=== PATIENT | male | born 1990 | race Caucasian/White ===

== ENCOUNTER 2017-05-08 16:28 | Emergency (ER) | payer MEDICAID ==
[2017-05-08 17:01] VITALS: BP 157/102; PULSE 93; RESP 16; TEMP 98.1; O2SAT 99
[2017-05-08] MEDS ORDERED: APAP/HYDROCODONE 325/5 TAB PO ONE (17:37)
[2017-05-08] MEDS ORDERED: APAP/HYDROCODONE 325/5 TAB ONE (17:52)
== END 2017-05-08 18:00 | disposition home or self-care (01) | DRG 159 ==
LOC: ED 16:28
DX: K08.89 Other specified disorders of teeth and supporting structures (principal)
CPT/HCPCS: 99282; 99283

== ENCOUNTER 2017-05-12 16:55 | Emergency (ER) | payer MEDICAID ==
[2017-05-12 17:05] VITALS: TEMP 97.6
[2017-05-12] MEDS ORDERED: SODIUM CHLORIDE 0.9% 1000 ML SOL IV SCH (17:30)
[2017-05-12 17:37] LABS: BASOPHILS % (AUTO) 1 % (0-3); EOSINOPHILS % (AUTO) 3 % (0-9); HEMATOCRIT 46 % (39-53); MEAN CORPUSCULAR HGB CONC 33.4 gm/dl (32.0-36.0); MEAN CORPUSCULAR VOLUME 82 fL (80-100); MONOCYTES % (AUTO) 6.1 % (0-12); NEUTROPHILS % (AUTO) 59.5 % (37-80)
[2017-05-12 17:46] LABS: APPEARANCE,URINE Clear; BILIRUBIN,URINE NEGATIVE (NEGATIVE); COLOR,URINE Yellow; GLUCOSE, URINE (UA) NEGATIVE (NEGATIVE); KETONES,URINE NEGATIVE (NEGATIVE); LEUKOCYTE ESTERASE ,URINE NEGATIVE (NEGATIVE); NITRATE,URINE NEGATIVE (NEGATIVE); OCCULT BLOOD,URINE NEGATIVE (NEG-TRACE); UROBILINOGEN,URINE 0.2 (0.2-1.0 EU)
[2017-05-12 18:01] LABS: ALBUMIN 3.6 gm/dl (3.4-5.0); CALCIUM 9.1 mg/dl (8.5-10.1)
[2017-05-12 18:04] LABS: AMPHETAMINES NEGATIVE (NEGATIVE); METHADONE NEGATIVE (NEGATIVE); OPIATES(OP13) POSITIVE (NEGATIVE); OXYCODONE(OXY) NEGATIVE (NEGATIVE); PROPOXYPHENE(PPX) NEGATIVE (NEGATIVE); RBC,URINE 0-1 (0-3AV/HPF); TRICYCLIC ANTIDEPRESSANTS NEGATIVE (NEGATIVE); WBC,URINE 0-2 (0-5AV/HPF)
[2017-05-12 19:08] VITALS: BP 156/93; PULSE 112; RESP 28; O2SAT 100
== END 2017-05-12 19:02 | disposition home or self-care (01) | DRG 923 ==
LOC: ED 16:55
DX: T67.1XXA Heat syncope, initial encounter (principal)
CPT/HCPCS: 80053; 80305; 81001; 85025; 99284